=== PATIENT | male | born 1995 | race Caucasian/White ===

== ENCOUNTER 2020-01-18 18:15 | Emergency (ER) | payer OTHER ==
[2020-01-18 18:41] LABS: ABSOLUTE EOSINOPHILS # (AUTO) 0.1 10^3/uL (0.0-0.6); ABSOLUTE LYMPHOCYTES (AUTO) 4.1 10^3/uL (0.5-4.7); ABSOLUTE MONOCYTES (AUTO) 0.7 10^3/uL (0.1-1.4); ABSOLUTE NEUT (AUTO) 9.1 10^3/uL (1.7-8.2); BASOPHILS % (AUTO) 0.3 % (0-2); HEMOGLOBIN 16.4 g/dL (13.5-17.0); LYMPHOCYTES % (AUTO) 29.1 % (13-45); MEAN CORPUSCULAR HEMOGLOBIN 32.6 pg (27.0-33.4); MEAN CORPUSCULAR HGB CONC 35.7 g/dL (32.0-36.0); MEAN CORPUSCULAR VOLUME 91 fl (80-97); MONOCYTES % (AUTO) 5.2 % (3-13); PLATELET COUNT 246 10^3/uL (150-450); RED BLOOD COUNT 5.03 10^6/uL (4.35-5.55); RED CELL DISTRIBUTION WIDTH 12.9 % (11.5-14.0); SEGMENTED NEUTROPHILS % (AUTO) 64.4 % (42-78); TOTAL CELLS COUNTED % (AUTO) 100 %; WHITE BLOOD COUNT 14.1 10^3/uL (4.0-10.5)
[2020-01-18 18:52] LABS: ACETAMINOPHEN < 10 ug/mL (10-30); ALBUMIN 5.5 g/dL (3.5-5.0); ALCOHOL 135 mg/dL (NONE DETECTED); ALKALINE PHOSPHATASE 94 U/L (38-126); ASPARTATE AMINO TRANSFERASE 25 U/L (17-59); BILIRUBIN,DIRECT 0.2 mg/dL (0.0-0.4); BLOOD UREA NITROGEN 8 mg/dL (7-20); CARBON DIOXIDE 19 mmol/L (22-30); CHLORIDE 106 mmol/L (98-107); GLUCOSE 100 mg/dL (75-110); TOTAL PROTEIN 8.6 g/dL (6.3-8.2)
[2020-01-18 18:58] LABS: APPEARANCE,URINE CLEAR; BILIRUBIN,URINE NEGATIVE (NEGATIVE); COLOR,URINE COLORLESS; GLUCOSE, URINE NEGATIVE (NEGATIVE); KETONES,URINE NEGATIVE (NEGATIVE); LEUKOCYTE ESTERASE,URINE NEGATIVE (NEGATIVE); NITRITE,URINE NEGATIVE (NEGATIVE); PROTEIN,URINE NEGATIVE (NEGATIVE); URINE SPECIFIC GRAVITY 1.002; UROBILINOGEN,URINE NEGATIVE mg/dL (<2.0)
[2020-01-18 18:59] LABS: POTASSIUM 3.4 mmol/L (3.6-5.0)
[2020-01-18 19:05] LABS: ANION GAP 21 (5-19)
[2020-01-18 19:13] LABS: URINE AMPHETAMINES SCREEN NEGATIVE; URINE BARBITURATES SCREEN NEGATIVE; URINE BENZODIAZEPINES SCREEN NEGATIVE; URINE COCAINE SCREEN NEGATIVE; URINE METHADONE SCREEN NEGATIVE; URINE PHENCYCLIDINE SCREEN NEGATIVE
[2020-01-18 19:14] LABS: URINE MARIJUANA (THC) SCREEN UNCONFIRMED POSITIVE
--- NOTE | 2020-01-18 19:18 | RADIOLOGY REPORT (SQ) ---
EXAM DESCRIPTION: CHEST SINGLE VIEW COMPLETED DATE/TIME: 01/18/2020 6:58 pm REASON FOR STUDY: status post CPR COMPARISON: None. EXAM PARAMETERS: NUMBER OF VIEWS: One view. TECHNIQUE: Single frontal radiographic view of the chest acquired. RADIATION DOSE: NA LIMITATIONS: None. FINDINGS: LUNGS AND PLEURA: No opacities, masses or pneumothorax. No pleural effusion. MEDIASTINUM AND HILAR STRUCTURES: No masses. Contour normal. HEART AND VASCULAR STRUCTURES: Heart normal in size. Normal vasculature. BONES: No acute findings. No displaced rib fractures. HARDWARE: None in the chest. OTHER: No other significant finding. IMPRESSION: NO ACUTE RADIOGRAPHIC FINDING IN THE CHEST. NO DISPLACED RIB FRACTURES. TECHNICAL DOCUMENTATION: JOB ID: [id number] 2010 [employer]- All Rights Reserved Reading location - IP/workstation name: [email or web address]
[2020-01-18] MEDS ORDERED: NORMAL SALINE 1000 ML 1,000 ML IV ONE (20:09)
--- NOTE | 2020-01-18 22:45 | EKG REPORT ---
SEVERITY:- BORDERLINE ECG - SINUS TACHYCARDIA PROBABLE LEFT ATRIAL ABNORMALITY : Confirmed by: Katelin Flores MD 18-Jan-2020 22:44:53
[2020-01-18] MEDS ORDERED: ONDANSETRON HCL INJ/PF 4 MG/2 ML SDV IV ONE (23:39)
--- NOTE | 2020-01-19 00:27 | ER Document Report ---
ED Substance Abuse / Acc. OD - General Chief Complaint: ETOH Abuse Stated Complaint: ETOH ABUSE Time Seen by Provider: 01/18/20 18:23 Mode of Arrival: Medic Information source: Patient, Relative - Aunt, Emergency Med Personnel Notes: Otherwise healthy 24-year-old male presenting to the emergency department via EMS acutely intoxicated. EMS reports that patient's girlfriend broke up with him last night, he made comments to his family that he was going to kill himself by drinking excess alcohol. EMS was called to the house for a unconscious person. Family was doing CPR. They found the patient to be hypoxic but with normal vital signs otherwise. He was transported to the emergency department. In route he became very combative and was fighting with the paramedics, they subsequently gave him 300 mg of ketamine. At the time of arrival he is very sedated. A nasal trumpet was inserted immediately and he was placed on 10 L nonrebreather. TRAVEL OUTSIDE OF THE [place] IN LAST 30 DAYS: No - Related Data Allergies/Adverse Reactions: No Known Allergies Allergy (Verified 04/28/12 19:20) Past Medical History - General Information source: Patient - Social History Smoking Status: Current Every Day Smoker Frequency of alcohol use: None Drug Abuse: Marijuana Family History: None Patient has suicidal ideation: No Patient has homicidal ideation: No - Medical History Medical History: Negative Surgical Hx: Negative - Immunizations Immunizations up to date: Yes Hx Diphtheria, Pertussis, Tetanus Vaccination: Yes Review of Systems - Review of Systems Constitutional: No symptoms reported EENT: No symptoms reported Cardiovascular: No symptoms reported Respiratory: No symptoms reported Gastrointestinal: No symptoms reported Genitourinary: No symptoms reported Male Genitourinary: No symptoms reported Musculoskeletal: No symptoms reported Skin: No symptoms reported Hematologic/Lymphatic: No symptoms reported Neurological/Psychological: No symptoms reported Physical Exam - Vital signs Vitals: Resp Pulse Ox 20 94 01/18/20 18:16 01/18/20 18:16 - Notes Notes: PHYSICAL EXAMINATION: GENERAL: Sedated, no acute distress. HEAD: Atraumatic, normocephalic. EYES: Pupils equal round and reactive to light, extraocular movements intact, sclera anicteric, conjunctiva are normal. ENT: Nares patent, oropharynx clear without exudates. Moist mucous membranes. NECK: Normal range of motion, supple without lymphadenopathy LUNGS: Breath sounds clear to auscultation bilaterally and equal. No wheezes rales or rhonchi. HEART: Regular rate and rhythm without murmurs ABDOMEN: Soft, nontender, nondistended abdomen. No guarding, no rebound. No masses appreciated. Musculoskeletal: Normal range of motion, no pitting or edema. No cyanosis. NEUROLOGICAL: Cranial nerves grossly intact. PSYCH: Unable to evaluate. SKIN: Warm, Dry, normal turgor, no rashes or lesions noted. Course - Re-evaluation Re-evalutation: 01/18/20 23:30 At this point time patient is medically cleared. His labs are unremarkable. His tox screen shows marijuana but otherwise negative. EKG shows sinus tachycardia, rate of 104, QTc 458, no ST segment elevations or depressions to suggest ischemia. Chest x-ray was unremarkable despite reports of patient having chest compressions done. He has been resting for the most part. A few times he has woken up and being anxious. He is still having some residual from the ketamine. Once this has cleared he will be medically cleared and able to see psych team in the morning. He was placed on IVC papers. 01/19/20 00:26 Report given to VIVI Galeano. Patient will be medically cleared once he is more awake. - Vital Signs Vital signs: Temp Pulse Resp BP Pulse Ox 128 H 17 165/93 H 98 01/18/20 18:22 01/18/20 19:01 01/18/20 19:00 01/18/20 19:01 - Laboratory Result Diagrams: 01/18/20 18:21 01/18/20 18:21 Laboratory results interpreted by me: 01/18/20 01/18/20 18:21 18:21 WBC 14.1 H Absolute Neuts (auto) 9.1 H Sodium 146.2 H Potassium 3.4 L Carbon Dioxide 19 L Anion Gap 21 H Total Protein 8.6 H Albumin 5.5 H Salicylates 1.0 L Acetaminophen < 10 L Discharge - Discharge Clinical Impression: Suicidal ideation Alcohol intoxication Qualifiers: Complication of substance-induced condition: uncomplicated Qualified Code(s): F10.920 - Alcohol use, unspecified with intoxication, uncomplicated Condition: Good Disposition: PSYCH HOSP/UNIT
--- NOTE | 2020-01-19 10:39 | PSYCHOLOGICAL NOTE ---
Psych Note - Psych Note Date seen by psych provider: 01/19/20 Time seen by psych provider: 08:45 Psych Note: Reason For Consult: Suicidal ideation Consent Permissions: Ashwin Diaz, Clinician observed patient's boss came to visit patient. They had a good conversation with patient smiling engaging with his boss. Patient's boss is observed talking with clinician and asking him "Am I going to see you tomorrow work?" In which the patient replied yes "Sir, I will be there." Upon entering the room, the patient is smiling and stated his boss "is a good man." Patient discloses that EMS brought him to [facility] because he was "too drunk." He reports that he normally does not drink but denies he was trying to harm himself. He confirms he was upset over breaking up with his girlfriend. He discloses that he remembers that his aunt was talking to his family member on the phone when he must have collapsed. He reports that they are the ones that called EMS. He denies remembering making any comments of wanting to harm himself; "not that I remember.... I am definitely not suicidal." Patient reports that he did not even know you could from "overdosing" on alcohol; "overdosing on alcohol? I didn't know that was a real thing..." Patient states that he plans to get back with his girlfriend however denies that he will want to harm himself if he is unsuccessful. He reports they have broken up approximately 8 times; he admits "this time was really bad." Clinician spoke with patient's aunt at bedside per patient's request. Patient's aunt discloses the patient typically does not drink however did apparently break-up with his significant other yesterday. She denies hearing any statements by the patient identifying suicidal ideation however states that the patient's father did. She confirms the patient has no mental health history. She is willing to be part of patient's plan of care to ensure patient has support network. She has no concerns with the patient returning home or that he will harm himself. Patient is alert and orientated to person, place, time and circumstance. Mood is euthymic with congruent affect as evidenced by smiling engaging with clinician. patient denies suicidal and homicidal ideation; denies remembering making any comments while under the influence. Delusions are absent and behaviors congruent with an intact reality based presentation ie organized and linear thought process. Eye contact is well-maintained. Conversational speech is within normal rate, tone and prosody. Intellectual abilities appear to be within the average range. Attention and concentration are good. Insight, judgment, impulse control are fair. Impression\\plan: Patient is commended for rescind of IVC and is cleared from acute psychiatric. Patient is no longer under the influence and reports not even remembering making comments of wanting to harm himself while drunk. Patient denies any thoughts of wanting to harm himself. Patient has a strong support network with family. Patient's aunt confirms to be part of plan of care to continue being a support network. Patient has been provided a local resource list of area providers including mobile crisis contact information if he chooses to follow-up with outpatient mental health services. At this time there is no history of mental health with the patient or family and this appears to be situational. Patient reports he does not typically drink which is supported by both family and reports that the patient passed out with an EtOH of 135. Patient demonstrated forward thinking in regards to going to work tomorrow smiles and engages with both visitors and [facility] staff. Dr. Pollard was consulted to care management of this patient; attending physicians in agreement with recommendations and disposition.
--- NOTE | 2020-01-19 11:09 | ER Document Report ---
Doctor's Note Notes: 01/19/20 11:08 Pt has been evaluated by psych team. IVC has been rescinded. Pt given outpatient resources with psych team and is safe for discharge per psych team. Pt has support from family. 01/19/20 11:15 Pt denies any SI. Nontoxic, well appearing. Pt voices understanding and agrees with plan of care.
[2020-01-19 11:23] VITALS: BP 138/88
== END 2020-01-19 11:24 | disposition home or self-care (01) ==
LOC: ER 18:15
DX: R45.851 Suicidal ideations (principal); F10.920 Alcohol use, unspecified with intoxication, uncomplicated; Z79.899 Other long term (current) drug therapy; F17.200 Nicotine dependence, unspecified, uncomplicated
CPT/HCPCS: 93005; 99285; 96361; 96374; 36415; 80307 ×4; 85025; 80053; 81001; 71045; 93010; J2405; J7030

== ENCOUNTER → 2020-07-30 | Outpatient (CLI) | payer OTHER ==
[2020-07-30 14:31] VITALS: BP 126/75
--- NOTE | 2020-07-30 14:31 | ER RDC ASSESSMENT REPORT ---
Intake - In the Last 14 days Have you traveled outside [place]?: No Have you been in close contact with someone CONFIRMED: No Worked in Healthcare?: No - Symptoms Subjective Fever([place] feverish): No Chills: No Muscule Aches: No Runny Nose: No Sore Throat: No Cough (New or worsening chronic cough): No Shortness of breath: No Nausea or Vomiting: No Headache: No Abdominal Pain: No Diarrhea(3 or more loose stools in last 24 hours): No - Do you have any of the following Chronic lung disease: Asthma or emphysema or COPD: No Cystic Fibrosis: No Diabetes: No High Blood Pressure: No Cardiovascular Disease: No Chronic Kidney Disease: No Chronic Liver Disease: No Chronic blood disorder like Sickle Cell Disease: No Weak immune system due to disease or medication: No Neurologic condition that limits movement: No Developmental delay - Moderate to Severe: No Morbid Obesity (>100 pounds over ideal weight): No - Objective Temperature: 98.7 F Pulse Rate: 80 Respiratory Rate: 18 Blood Pressure: 126/75 O2 Sat by Pulse Oximetry: 97 Objective: Given above, testing performed: covid Disposition: Home; Selfcare General - General Stated Complaint: asymptomatic, covid screen Time Seen by Provider: 07/30/20 14:00 Mode of Arrival: Ambulatory Information source: Patient - [facility] Notes: Patient presents to clinic for COVID-19. Patient reports no known contact with COVID positive individual. Patient is asymptomatic. They deny any cough, shortness of breath, fever, chills, muscle aches, rhinorrhea, sore throat, nausea or vomiting, headache, abdominal pain or diarrhea. Patient has no acute medical concerns. - Related Data Allergies/Adverse Reactions: No Known Allergies Allergy (Verified 04/28/12 19:20) Past Medical History - General Information source: Patient - Social History Smoking Status: Former Smoker Family History: None - Past Medical History Cardiac Medical History: Reports: None Pulmonary Medical History: Reports: None EENT Medical History: Reports: None Neurological Medical History: Reports: None Endocrine Medical History: Reports: None Renal/ Medical History: Reports: None Malignancy Medical History: Reports None GI Medical History: Reports: None Musculoskeletal Medical History: Reports None Skin Medical History: Reports None Psychiatric Medical History: Reports: None Traumatic Medical History: Reports: None Infectious Medical History: Reports: None Past Surgical History: Reports: None Physical Exam - General General appearance: Appears well, Alert In distress: None Notes: PHYSICAL EXAMINATION: GENERAL: Well-appearing and in no acute distress. HEAD: Atraumatic, normocephalic. EYES: sclera anicteric, conjunctiva are normal. ENT: nares patent. Moist mucous membranes. NECK: Normal range of motion, supple without lymphadenopathy. LUNGS: No increased work of breathing. Lung sounds CTAB and equal. No wheezes rales or rhonchi. HEART: Regular rate and rhythm without murmurs. ABDOMEN: Soft, nontender, normal bowel sounds, no guarding. EXTREMITIES: Normal range of motion, no pitting edema. No cyanosis. NEUROLOGICAL: A&O x 3. Normal speech. PSYCH: Normal mood, normal affect. SKIN: Warm, Dry, normal turgor, no rashes or lesions noted Patient Education/Counseling Counseling/Education: Patient presents for COVID 19 testing for routine screening. Patient is asymptomatic at this time. Patient does not have emergency worrying symptoms such as difficulty breathing, shortness of breath, chest pain, pressure, confusion or cyanosis. Patient appears suitable for discharge as vital signs are stable and patient is nontoxic in appearance. Good return precautions have been discussed with patient, patient verbalized understanding and is agreeable with discharge plan of care at this time. Guidance for worsening S/SX: As a person under investigation for Covid 19, the [place] department of Health and Human Services, division of public health advises you to adhere to the following guidance until your test results are reported to you. If your test result is positive, you will receive additional information from your provider and your local health department at that time. Remain at home until you are cleared by the health provider or public health authorities. Keep a log of visitors to your home, notify any visitors to your home of your isolation status. If you plan to move to a new address or leave the county, notify the local health department in your County. Call your doctor or seek care if you have an urgent medical need. Before seeking medical care, call ahead to get instructions from the provider before arriving at the medical office clinic or hospital. Notify them that you are being tested for the virus that causes Covid 19 so that arrangements can be made, as necessary, to prevent transmission to others in the healthcare setting. Next, notify the local health department in your county. If a medical emergency arises and you need to call 911, inform the first respo nders that you are being tested for the virus that causes Covid 19. Next, notify the local health department in your county. RDC Discharge - Discharge Clinical Impression: Encounter for screening laboratory testing for COVID-19 virus in asymptomatic patient Condition: Good Disposition: Home; Selfcare
== END ==
LOC: RDC 13:37
PROVIDERS: ATTEND Registered Nurse
DX: Z11.59 Encounter for screening for other viral diseases (principal); Z87.891 Personal history of nicotine dependence
CPT/HCPCS: U0003; C9803; 87635